=== PATIENT | male | born 1950 | race African-American/Black ===

== ENCOUNTER 2018-07-04 23:23 | Emergency (ER) | payer OTHER, SELFPAY ==
[2018-07-05] MEDS ORDERED: DIPHENHYDRAMINE 50MG/ML VIAL IV ONE (00:45)
[2018-07-05] MEDS ORDERED: FAMOTIDINE 20MG/2ML VIAL IV ONE (00:45)
[2018-07-05] MEDS ORDERED: DEXAMETHASONE 10 MG/ML VIAL IV ONE (00:45)
[2018-07-05 03:39] VITALS: BP 134/89
== END 2018-07-05 03:41 | disposition home or self-care (01) ==
LOC: ER 23:23
DX: T46.4X5A Adverse effect of angiotensin-converting-enzyme inhibitors, initial encounter (principal); I10 Essential (primary) hypertension; N40.0 Benign prostatic hyperplasia without lower urinary tract symptoms; Z88.8 Allergy status to other drugs, medicaments and biological substances; Z91.14 Patient's other noncompliance with medication regimen; Y92.149 Unspecified place in prison as the place of occurrence of the external cause
CPT/HCPCS: 96374; 96375; 99283; J1100; J1200; J3490